=== PATIENT | male | born 1955 | race Caucasian/White ===

== ENCOUNTER 2017-03-31 13:16 | Inpatient (IN) | payer BC ==
--- NOTE | ~2017-03-31 | CO ---
Unit #: [id number] #: [id number] Patient: SHUKRI ALEJANDRE [id number] [address] [place], [place] [address] [id number] I MR#: [id number] NAME: SHUKRI ALEJANDRE ROOM: 326 Age: 62 Sex: M Admission Date: 03/31/2017 : 1955 Attending Physician: Gen Smith M.D. Primary Care Physician: Malvin Clark M.D. CONSULTATION REPORT REVISED REPORT REASON FOR CONSULTATION Depression and anxiety. HISTORY OF PRESENT ILLNESS Mr. Shukri Alejandre is a 62-year-old white male, seen in room 309, bed 1 on 04/01/2017. The patient was pleasant and cooperative during interview, lying comfortably in bed. The patient's was at the bedside. The patient reported history of depression and anxiety on medication, but admitted due to questionable stroke. The patient denied any suicidal or homicidal ideation. Denied any psychotic symptom, but still somewhat anxious and nervous. The patient has a good support system from his and children. Vital signs stable; temperature 98.1, pulse 63, respiratory rate 20, blood pressure 119/73, and oxygen saturation 99%. The patient was admitted last in 2015 at [facility] within non ST-elevation myocardial infarction. The patient has a history of cardiomyopathy. The patient was admitted with dizziness complaint. No focal weakness or paresthesia. The patient's vital signs are pulse 68, respiratory rate 14, blood pressure 118/76, height 6 feet 3 inches, weight 306 pounds. PAST PSYCHIATRIC HISTORY Remarkable for history of depression and anxiety. The patient takes Effexor and Seroquel combination. No history of any suicide attempt or any inpatient treatment. History of anxiety. MEDICAL HISTORY Remarkable for history of coronary artery disease, status post stent placement; history of hypertension; chronic pain and anxiety; chronic benzodiazepine use and narcotic use; history of hypertension; hyperlipidemia; COPD. MEDICATIONS At home, the patient is on oxycodone, hydrocodone, Ativan 2 mg t.i.d., Neurontin, aspirin, Synthroid, Effexor, Seroquel, Soma, and Dulera. ALLERGIES Advair and Levaquin. FAMILY HISTORY AND SOCIAL HISTORY The patient has a good support system from family. Lives at home with his and daughter with her kids. The patient has a job. No history of abuse. No history of any substance abuse. Unit #: [id number] #: [id number] Patient: SHUKRI ALEJANDRE REVIEW OF SYSTEMS Complete review of system is unremarkable except as mentioned above. MENTAL STATUS EXAMINATION Vital signs, please see above. General appearance; the patient is moderately obese, dressed casually, lying comfortably in bed. Attention span and concentration, fair. Speech, slow in volume and rate. Oriented in time, place, and person. Mood and affect, sad and dysphoric. Thought process, coherent. Thought content, the patient denied any thoughts of harming self or others or any psychotic symptom. Recent and remote memory, fair. Language, intact. Fund of knowledge, fair to slightly impaired. DIAGNOSES Psychiatric: 1. Major depressive disorder, recurrent, severe, F33.2. 2. Anxiety disorder, not otherwise specified, F40.01. ASSESSMENT/PLAN 1. Supportive psychotherapy and psychoeducation provided to the patient. 2. Educated about benefits and side effects of medications and course and prognosis of illness. 3. At this time, the patient and family does not want to change medication. We will continue to monitor, although the dosage seems to be high but we will closely monitor. The patient is on Seroquel 300 mg at bedtime, Neurontin 300 mg t.i.d., Ativan is p.r.n. 0.5 mg, Effexor XR 300 mg daily. We will continue to follow. Please feel free to call if any questions, telephone #[phone]. ADDITIONAL JOB #: [id number] Dictated by... Betzaida Coburn/xiao TD: 04/01/2017 23:53 JOB #: [id number] CC: Enedina/isauraision Please Delete CONSULTATION REPORT Page 1 of 1 X Yonathan De La O MD CONSULTATION REPORT
--- NOTE | ~2017-03-31 | CO ---
Unit #: [id number] #: [id number] Patient: SHUKRI ALEJANDRE [id number] [facility] [address] [facility]. [place], [place] [address] [id number] I MR#: [id number] NAME: SHUKRI ALEJANDRE. ROOM: 326 Age: 62 Sex: M Admission Date: 03/31/2017 : 1955 Attending Physician: Gen Smith M.D. Primary Care Physician: Malvin Clark M.D. Consultation Date: 04/02/2017 CONSULTATION REPORT REASON FOR CONSULTATION Followup. DISCUSSION Mr. Shukri Alejandre is a 62-year-old male, seen in room 326, bed 1 on 04/02/2017 at [facility]. The patient was lying comfortably, dressed in hospital attire, pleasant, cooperative, affect was bright, mood good. He reports that he is feeling good and reports that he is waiting for his CT scan report and neurologist. The patient denied any thoughts of harming self or others or any psychotic symptom. The patient's vital signs are stable; temperature 99.0, pulse 75, respiratory rate 20, blood pressure 131/78, and oxygen saturation 97%. REVIEW OF SYSTEMS Complete review of systems unremarkable. MENTAL STATUS EXAMINATION General appearance; the patient dressed casually, moderately obese. Attention span and concentration, fair. Speech, regular rate and coherent. Oriented in time, place, and person. Mood and affect, sad and dysphoric, but able to smile. Thought process, coherent. Thought content, the patient denied any thoughts of harming self or others. Denied any psychotic symptom. Recent and remote memory, fair. Language, intact. Fund of knowledge, fair to slightly impaired. DIAGNOSES Psychiatric: Major depressive disorder, recurrent, severe, F33.2; anxiety disorder, not otherwise specified, F40.01. ASSESSMENT/PLAN 1. Supportive psychotherapy and psychoeducation provided to the patient. 2. Educated about benefits and side effects of medication and course and prognosis of illness. 3. Advised to continue with current combination of medication, no change, and the patient to follow up upon discharge with his outpatient psychiatrist. Please feel free to call if any questions, telephone #[phone]. Dictated by... YonathanBetzaida Garcia Unit #: [id number] #: [id number] Patient: SHUKRI ALEJANDRE TD: 04/02/2017 22:52 JOB #: [id number] CONSULTATION REPORT Page 1 of 1 X Yonathan De La O MD CONSULTATION REPORT
--- NOTE | ~2017-03-31 | HP ---
Unit #: [id number] #: [id number] Patient: ALEXIA PETERSON [id number] [id number] [facility]. [place], [place] [address] [id number] I MR#: [id number] NAME: ALEXIA PETERSON ROOM: 309 Age: 62 Sex: M Admission Date: 03/31/2017 : 1955 Attending Physician: Gen Smith M.D. Primary Care Physician: Malvin Clark M.D. HISTORY AND PHYSICAL CHIEF COMPLAINT Dizziness. HISTORY OF PRESENT ILLNESS This 62-year-old gentleman, who has a variety of medical problems, said he became dizzy on and it has increased gradually. It is a room spinning sensation. He denies nausea or vomiting. It seems to be made worse by standing, but he can even be dizzy if he is lying down. No focal weakness or paresthesias. PAST MEDICAL HISTORY Past medical history is remarkable for coronary artery disease status post stent placement, history of hypertension, chronic pain and anxiety - on chronic benzodiazepines and narcotics, history of hypertension, hyperlipidemia and COPD. MEDICATIONS Medications at home include oxycodone 10 mg, hydrocodone, Ativan 2 mg t.i.d., Neurontin, Tenoretic, aspirin, Synthroid, Feldene, Effexor, potassium, Lipitor, Seroquel, Soma. He is on Dulera twice a day but no other inhaled medications. ALLERGIES Advair, although he takes Dulera at home; Levaquin. SOCIAL HISTORY Quit smoking in October of this year but smoked 2 1/2 packs of cigarettes a day. He does drink. FAMILY HISTORY No familial lung disease. REVIEW OF SYSTEMS He does snore. Has been told he has witnessed apneic events. He had some chest pain, and cardiology feels that it was reflux. No palpitations. No abdominal pain, melena, hematochezia, hematuria, dysuria, focal weakness, paresthesias. He does see a urologist. He does wheeze on occasion and does produce chronic sputum. Further review of systems negative. PHYSICAL EXAMINATION VITAL SIGNS: Examination reveals a gentleman who is afebrile. Pulse 68, respiratory rate 14, blood pressure 118/74. He is 6'3", 306 pounds. BMI is 38. HEENT: Pupils equal, round and reactive to light. Sclerae anicteric. Unit #: [id number] #: [id number] Patient: ALEXIA PETERSON Head atraumatic. Mallampati class 4 oropharynx. NECK: Supple. No supraclavicular or cervical adenopathy appreciated. CHEST: Decreased breath sounds. No ashley wheeze, stridor, consolidation. CARDIAC: Examination reveals a regular rate and rhythm. No pathologic murmur, rub or gallop. ABDOMEN: Abdomen is soft, nontender. No hepatomegaly or rebound. EXTREMITIES: Extremities reveal no clubbing, cyanosis or edema. No calf tenderness. SKIN: Warm and dry without rash or diaphoresis. NEUROLOGIC: Walks about the room without difficulty. He does hold on to objects for stability. DIAGNOSTIC STUDIES IMAGING: He had a CT scan, which was unremarkable. Chest x-ray - No acute disease on a portable chest. LABORATORY EXAMINATION: BUN 16, creatinine 1.1. INR normal. Initial cardiac enzymes negative. CBC normal. CARDIOVASCULAR: EKG - Sinus rhythm. IMPRESSION 1. Dizziness, suspect labyrinthitis. 2. Chest pain, although did not mention to me. Cardiology feels that it is reflux. 3. Coronary artery disease. 4. COPD. 5. Likely obstructive sleep apnea, etc. PLAN Admission to the hospital. Neurology and cardiology workup is ongoing. He, likely, will need ENT evaluation as an outpatient. He also will need outpatient nocturnal polysomnography and PFTs. Long-term, I would suggest avoiding benzodiazepines and narcotics if possible; if not possible for complete avoidance, I would decrease his dose, as this certainly is going to aggravate his sleep apnea. Dictated by Hi Dey M.D. GAGAN/homa TD: 04/01/2017 11:27 JOB #: [id number] HISTORY AND PHYSICAL Page 1 of 1 X Hi Dey MD HISTORY AND PHYSICAL
--- NOTE | ~2017-03-31 | EKG ---
PATIENT: ALEXIA PETERSON UNIT #: [id number] Ventricular Rate: 77 BPM Atrial Rate: 77 BPM P-R Interval: 160 ms QRS Duration: 96 ms Q-T Interval: 368 ms QTC Calculation(Bezet): 416 ms P Oblong: 59 degrees Calculated R Oblong: 62 degrees Calculated T Oblong: 70 degrees Diagnosis Line: Normal sinus rhythm Diagnosis Line: Cannot rule out Anterior infarct (cited on or Diagnosis Line: before 28-FEB-2016) Diagnosis Line: Abnormal ECG Diagnosis Line: When compared with ECG of 01-MAR-2016 06:41, Diagnosis Line: Serial changes of Anterior infarct Present Diagnosis Line: Confirmed by LLOYD RAVI MD ([id number]) on 03/31/2017 Diagnosis Line: 4:54:35 PM INTERPRETING MD: BREONNA PINK
--- NOTE | ~2017-03-31 | DS ---
Unit #: [id number] #: [id number] Patient: ALEXIA PETERSON [id number] [address] [address] [id number] I MR#: [id number] NAME: ALEXIA PETERSON. ROOM: 326 Age: 62 Sex: M Admission Date: 03/31/2017 : 1955 Discharge Date: 04/02/2017 Attending Physician: Gen Smith M.D. Primary Care Physician: Malvin Clark M.D. DISCHARGE SUMMARY DISCHARGE DIAGNOSES 1. Dizziness, likely labyrinthitis, neurology workup negative. 2. Likely obstructive sleep apnea, suspect severe. 3. Chronic obstructive pulmonary disease. 4. Hypercapnia multifactorial including obesity, sleep apnea, chronic obstructive pulmonary disease, and medication effect. 5. Coronary artery disease, status post stent placement. 6. History of acute myocardial infarction. 7. Hypertension. 8. Hyperlipidemia. 9. Chronic back pain. 10. Anxiety, depression. CONSULTANTS 1. Dr. Desouza. 2. Dr. De La O. 3. Dr. Jackson. FOLLOWUP 1. Followup with Dr. Clark, I have suggested in one week. Patient wants to get ENT evaluation from Dr. Clark. 2. Dr. Dey's nurse practitioner in one to two weeks, arrange a sleepy study and PFTs. 3. Dr. Shah, neurology, in four weeks. 4. Dr. Desouza, May 01. MEDICATIONS 1. Dulera two puffs twice a day. 2. Albuterol as needed. 3. Aspirin 81 mg a day. 4. Feldene 20 mg a day. 5. Hydrocodone p.r.n. I have suggested reducing the dose as much as possible. 6. Potassium 20 mEq daily. 7. Neurontin 300 mg t.i.d. 8. Lipitor 80 mg at bedtime. 9. Seroquel 300 mg at bedtime. 10. Ativan p.r.n. lowest dose as possible. 11. Tenoretic 50 mg a day. 12. Soma 350 mg in the morning, 700 mg at bedtime. 13. Synthroid 0.025 mg daily. DIET As tolerated. Unit #: [id number] #: [id number] Patient: ALEXIA PETERSON ACTIVITY No specific restrictions. Room air arterial blood gas: A pH 7.4, pCO2 of 51, pO2 of 73. DESCRIPTION OF HOSPITALIZATION Patient was admitted through the emergency room with dizziness. He was seen by cardiology, neurology. Cardiology asked Dr. De La O, psychiatry, to see the patient in attempts to reduce some of his medications. He underwent MRI of the brain, which the formal report is pending but according to the neurologist showed no acute stroke. Other studies again reports are pending but there was no findings that required further inpatient evaluation according to neurology. Cardiology signed off and will follow up in the office. On the day of discharge, he felt better. In fact, he says "I'm fine." Without question, he has COPD and I have encouraged continued not smoking. He will continue his inhaled bronchodilators and I have added as needed albuterol. He should get PFTs as an outpatient. He has undoubtedly sleep apnea which I suspect is severe and he needs outpatient nocturnal polysomnography. There was some vague details about possibly getting a sleep study in the future but could not tell me what doctor, where, or how. He now wants to come to my office for evaluation. He will be seen in our office by our nurse practitioner. Will investigate insurance requirements for arranging a sleep study. Again, I have suggested that he reduce his narcotics and benzodiazepines. I have discussed it with he and family members. I also have stressed the need for ENT evaluation but again he wants to wait and talk to Dr. Clark and have him arrange it. Overall, he was discharged in improved condition. Dictated by... Hi Dey M.D. GAGAN/dylan TD: 04/03/2017 09:20 JOB #: [id number] DISCHARGE SUMMARY Page 1 of 1 X Hi Dey MD X DISCHARGE SUMMARY
--- NOTE | ~2017-03-31 | CR72 ---
[facility] A Service of [facility] & [facility] RADIOLOGY TEXT RESULTS PATIENT: ALEXIA PETERSON LOCATION: [facility] 326- : [birth year] UNIT #: [id number] AGE: [address]: Gen Smith MD SEX: M ORDER DR: [id number] [facility] [address] [facility]. [place], [place] [address] [id number] I MR#: [id number] Acc #: [id number] NAME: ALEXIA PETERSON. : 1955 SEX: M STUDY DATE/TIME: 03/31/2017 14:10 UNIT: [address] ROOM: [facility] STUDY DESCRIPTION: CR Chest Single View Portable Attending Physician: Gen Smith M.D. Ordering Physician: Hany Brantley D.O. Primary Care Physician: Malvin Clark M.D. MEDICAL IMAGING REPORT This report is preliminary unless electronic signature is present EXAM Portable chest 03/26/2011 COMPARISON STUDIES 02/27/2016 HISTORY Chest pain, shortness of breath and dizziness beginning 03/26/17. FINDINGS AP portable view of the chest is obtained. The heart size is normal and the lungs are clear. CONCLUSION Negative portable chest Dictated by... Rudolph Soto M.D. THIS IS AN ELECTRONICALLY VERIFIED REPORT Rudolph Soto M.D. at 04/04/2017 7:15 AM LUPE/ene TD: 03/31/2017 21:39 JOB #: [id number] MEDICAL IMAGING REPORT Page 1 of 1 COPY
--- NOTE | ~2017-03-31 | CO ---
Unit #: [id number] #: [id number] Patient: ALEXIA PETERSON [id number] [facility] [address] [facility]. [place], [place] [address] [id number] MR#: [id number] NAME: ALEXIA PETERSON ROOM: 326 Age: 62 Sex: M Admission Date: 03/31/2017 : 1955 Attending Physician: Gen Smith M.D. Primary Care Physician: Malvin Clark M.D. Consultation Date: 04/01/2017 CONSULTATION REPORT PRIMARY CARE PHYSICIAN Dr. Malvin Clark. CONSULTING PHYSICIAN Dr. Gen Smith. REASON FOR CONSULTATION Rule out stroke. PATIENT IDENTIFICATION This is a 62-year-old right-handed male, evaluated in room 326 at [facility]. SOURCE OF INFORMATION Obtained from the patient, the patient's at the bedside as well as medical record. HISTORY OF PRESENT ILLNESS This is a 62-year-old right-handed male, with past medical history of CAD with stent placement in 2016, hypertension, chronic pain, anxiety, COPD, hypertension, hyperlipidemia, anxiety, and depression as well as bipolar disorder, who presents to [facility] with chief complaint of dizziness. The patient states that he has been having ongoing "dizziness" since , that it has gotten progressively worse. Thus, he sought treatment for further evaluation. His at the bedside states that she noted that he had slurred speech on Saturday, that she states is not fully resolved. The patient reports that he feels as though the sensation of spinning and he states that whenever he attempts to ambulate that he feels as though he is going to fall forward. He reports nausea, but denies vomiting. He reports symptoms are worse with movement and standing, but he does experience dizziness while lying or sitting, although, it has improved. He denies any double vision, blurred vision or loss of vision, headache, or neck pain, any recent illness or injury. He denies any focal weakness or paresthesia, or shortness of air, or loss of consciousness, or loss of awareness. He did complain of some sharp chest pain for which Cardiology has evaluated and does not feel as though it is cardiac in nature. He also reports that he did stop his Brilinta recently for a scheduled prostate biopsy that was restarted yesterday by Cardiology. The patient denies any other exacerbating or alleviating factors or any other associated symptoms. He had a head CT done without contrast in the ER that shows no demonstrable significant intracranial abnormality, please see full report. He had a carotid ultrasound that shows no evidence of hemodynamically significant luminal narrowing in the bilateral cervical Unit #: [id number] #: [id number] Patient: ALEXIA PETERSON internal carotid arteries by NASCET criteria. There is antegrade flow in both vertebral arteries. However, Doppler pulse wave form for right vertebral artery suggested diminished absent diastolic flow which could be a reflection of right vertebral artery stenosis. The patient has a CT angiography of the neck and head scheduled for further assessment of the left vertebral artery is unremarkable, scattered atherosclerotic plaque throughout carotid systems bilaterally noted. He also had chest x-ray done in the ER that was negative. The patient reports persistent dizziness, thus Neurology was asked to evaluate. EKG shows normal sinus rhythm with a ventricular and atrial rate of 77 beats per minute, this was done on 03/31/2017. PAST MEDICAL HISTORY 1. CAD with a history of non-STEMI in 2016, status post stent placement. 2. Hypertension. 3. Hyperlipidemia. 4. Chronic back pain. 5. Anxiety. 6. Depression. 7. Bipolar disorder. 8. Obesity. 9. COPD. 10. Chronic benzodiazepine and narcotics use. ALLERGIES 1. Advair. 2. Levaquin. HOME MEDICATIONS Include: 1. Oxycodone. 2. Hydrocodone. 3. Ativan, he actually takes 2 mg p.o. t.i.d., but he is receiving 0.5 mg t.i.d. here. 4. Neurontin. 5. Tenoretic. 6. Aspirin. 7. Synthroid. 8. Feldene. 9. Effexor. 10. Potassium. 11. Lipitor. 12. Seroquel. 13. Soma. 14. Brilinta, again his Brilinta was stopped last week, but was restarted yesterday on admission. 15. Dulera. FAMILY HISTORY Noncontributory. SOCIAL HISTORY The patient is , lives with his . He is a reformed smoker, he quit in October of this year. He smoked two and half packs per day of tobacco prior to that. He is reformed drinker, his states that he quit drinking in October as well and had about a 10-year history of drinking prior to that and for couple of years, she reports he was a very heavy drinker. Unit #: [id number] #: [id number] Patient: ALEXIA PETERSON REVIEW OF SYSTEMS A 12-point review of systems was done. Pertinent positives are as discussed above. Of note, his states that he has had some episodes of confusion at home going on for quite a long time efforts of the year, where he will have some days, where he is confused, that she reports he has never had any focal neurologic deficits. Otherwise, 14-point review of systems is negative unless as discussed above. PHYSICAL EXAMINATION VITAL SIGNS: Temperature 98.1. He has been afebrile. Pulse 63, respirations 20, blood pressure 119/73, blood pressure on arrival is 127/83, oxygen saturation 99%. Height 63 inches and weight 306 pounds. BMI 38. NEUROLOGIC: The patient is awake, alert, and oriented to person, place, and time as well as events. No right or left confusion. No finger agnosia. No aphasia or apraxia. He does not appear to have any obvious dysarthria. His , however, states that his speech is not at his baseline. Cranial nerve exam, he demonstrates full dooley of vision. Eyes are conjugate without ptosis. Questionable nystagmus. Extraocular movements are intact. Sensation of face and scalp is intact. Strength of the muscles of facial expression is intact. Hearing is intact to finger rub and conversation. Tongue is midline. Uvula is midline. Palate elevation is normal. Head turning and shoulder shrug are unremarkable. Neck is supple. Motor exam, he demonstrates normal bulk and tone. Strength is equal 5/5 in all extremities though he has difficulty with the right lower extremity, but he reports that this is due to pain in his right leg that he has chronic right leg pain and chronic back pain. Sensory exam, diminished sensation in the lower extremities bilaterally. Gait deferred. Romberg deferred. Reflexes, unable to elicit. Toes are equivocal. Coordination, he has some difficulty with the left upper extremity consistently compared to the right. There are no difficulty with the lower extremities. He does not appear to have any truncal ataxia. He is able to sit up on the side of the bed without significant difficulty. DIAGNOSTIC STUDIES Please see above. LABORATORY DATA Ammonia 32. Lactic acid 1.3. Troponin less than 0.05, repeat troponin less than 0.05. BNP 44. PT 9.8, INR 0.9, PTT 24.7. Sodium 138, potassium 3.5, chloride 99, CO2 of 32, glucose 170, BUN 16, creatinine 1.1. Estimated GFR 32.6, calcium 8.8, AST is 21, ALT 27, alkaline phosphatase 59. Total protein 7.5, albumin 3.9. Alcohol level less than five. CBC unremarkable. IMPRESSION 1. Acute to subacute vertigo and nausea, rule out central etiology. 2. Coronary artery disease. 3. Left ventricular ejection fraction 50%. 4. Chronic pain. 5. Reformed smoker. 6. Reformed drinker. 7. Hypertension. 8. Hyperlipidemia. 9. Chronic obstructive pulmonary disease. 10. Anxiety. Unit #: [id number] #: [id number] Patient: ALEXIA PETERSON 11. Depression. 12. Obesity with BMI of 38. 13. Bipolar disorder. PLAN We will request MRI of the brain, CT angiogram of the head and neck. The patient is already on aspirin and Brilinta has been restarted. I am unable to perform Efren-Hallpike on the patient at this time. I discussed the case with Dr. Jackson and he agrees the MRI of the brain and blood vessel imaging as well with placed bilateral lower extremity SCDs. Continue antiplatelet medication. The patient is requesting Ativan for MRI and states he is claustrophobic. I did discuss with Dr. Jackson as he takes p.o. Ativan at a pretty significant dose at home. We did try the patient with a small dose of IV Ativan for MRI; however, he was unable to tolerate MR imaging here as it is a closed small bore MRI and it was quite a tight fit. The patient was not able to sit comfortably and unable to tolerate; therefore, we will send the patient to [facility] [place] [facility] for large bore MRI in an attempt to getting brain imaging. We will request CT angiogram of the head and neck. Further recommendations made pending workup and further clinical course. Please call for any questions or issues. We thank you very much for allowing us to assist in the care of this patient. Dictated by... Barbara Nevarez A.P.R.N. for Betzaida Barnes/xiao TD: 04/02/2017 14:27 JOB #: [id number] CONSULTATION REPORT Page 1 of 1 X Barbara Nevarez APRN X CONSULTATION REPORT
--- NOTE | ~2017-03-31 | CT17 ---
[facility] A Service of [facility] & [facility] RADIOLOGY TEXT RESULTS PATIENT: ALEXIA PETERSON LOCATION: [facility] 326- : 57 UNIT #: [id number] AGE: [address]: Gen Smith MD SEX: M ORDER DR: [id number] [place], [place] [address] [id number] I MR#: [id number] Acc #: [id number] NAME: ALEXIA PETERSON : 1955 SEX: M STUDY DATE/TIME: 04/02/2017 8:33 UNIT: [address] ROOM: [address] [place] [address] DESCRIPTION: CT Angio Head Attending Physician: Gen Smith M.D. Ordering Physician: Barbara Nevarez A.P.R.N. Primary Care Physician: Malvin Clark M.D. MEDICAL IMAGING REPORT This report is preliminary unless electronic signature is present EXAM CT scan of the head and neck with contrast with carotid CT angiography FINDINGS Result text under order number [id number]. Please see this order for result text. Dictated by... Kj Oliva M.D. THIS IS AN ELECTRONICALLY VERIFIED REPORT Kj Oliva M.D. at 04/02/2017 4:10 PM RLF/juan TD: 04/02/2017 15:18 JOB #: [id number] MEDICAL IMAGING REPORT Page 1 of 1 COPY
--- NOTE | ~2017-03-31 | US37 ---
[facility] A Service of [facility] & [facility] RADIOLOGY TEXT RESULTS PATIENT: ALEXIA PETERSON LOCATION: [facility] 326- : 57 UNIT #: [id number] AGE: [address]: Gen Smith MD SEX: M ORDER DR: [id number] [facility] [address] [facility]. [place], [place] [address] [id number] I MR#: [id number] Acc #: [id number] NAME: ALEXIA PETERSON. : 1955 SEX: M STUDY DATE/TIME: 04/01/2017 7:46 UNIT: [facility] PCU ROOM: 309 STUDY DESCRIPTION: US Carotid W/Doppler Bilateral Attending Physician: Gen Smith M.D. Ordering Physician: Gen Smith M.D. Primary Care Physician: Malvin Clark M.D. MEDICAL IMAGING REPORT This report is preliminary unless electronic signature is present EXAM Carotid ultrasound, 04/01/2017 HISTORY Evaluate for stroke. Dizziness for 1 week. Myocardial infarction, cardiac stents, hypertension. Heart disease, high blood pressure. FINDINGS Real-time ultrasonography of the cervical carotid and vertebral arteries performed. Monroe-scale, color Doppler and Doppler pulse-wave interrogation utilized. Carotid flow evaluated using methodology based upon NASCET criteria. Atherosclerotic plaque seen throughout the carotid systems bilaterally. On the right peak systolic velocities as follows: Common carotid artery 0.41 m/sec, internal carotid artery 0.64 m/sec, in mid segment of artery, external carotid artery 0.57 m/sec second. There is antegrade flow in the right vertebral artery. The right IC/CC ratio is 1.5. Right-sided Doppler pulse waveforms notable for diminished to absent diastolic flow in the right vertebral artery. This could be a reflection of right vertebral artery stenosis. On the left peak systolic velocities as follows: Common carotid artery 0.61 m/sec, internal carotid artery 0.48 m/sec at distal segment of the artery, external carotid artery 0.47 m/sec. There is antegrade flow in the left vertebral artery. The left IC/CC ratio is 0.78. Left-sided Doppler pulse waveforms normal. IMPRESSION 1. There is no evidence of hemodynamically significant luminal narrowing in the bilateral cervical internal carotid arteries using NASCET criteria. 2. There is antegrade flow in both vertebral arteries. Doppler pulse [facility] A Service of [facility] RADIOLOGY TEXT RESULTS PATIENT: ALEXIA PETERSON LOCATION: [facility] [address] : 57 UNIT #: [id number] AGE: [address]: Gen Smith MD SEX: M ORDER DR: waveform for right vertebral artery suggests diminished to absent diastolic flow which could be a reflection of right vertebral artery stenosis. Records in DR PACS System indicate patient is scheduled for a CT angiography of the neck and head. Please see that study for additional assessment. The left vertebral artery unremarkable. 3. Scattered atherosclerotic plaque throughout carotid systems bilaterally. Dictated by... Rudolph Herr M.D. THIS IS AN ELECTRONICALLY VERIFIED REPORT Rudolph Herr M.D. at 04/02/2017 5:16 PM FLAKO/nicholas TD: 04/01/2017 16:12 JOB #: [id number] MEDICAL IMAGING REPORT Page 1 of 1 COPY
--- NOTE | ~2017-03-31 | EKG ---
PATIENT: ALEXIA PETERSON UNIT #: [id number] Ventricular Rate: 62 BPM Atrial Rate: 62 BPM P-R Interval: 164 ms QRS Duration: 100 ms Q-T Interval: 422 ms QTC Calculation(Bezet): 428 ms P Clinton: 54 degrees Calculated R Clinton: 59 degrees Calculated T Clinton: 72 degrees Diagnosis Line: Normal sinus rhythm Diagnosis Line: Low voltage QRS Diagnosis Line: Poor R wave progression questionable lead position Diagnosis Line: or body habitus Diagnosis Line: Borderline ECG Diagnosis Line: When compared with ECG of 31-MAR-2017 13:23, Diagnosis Line: No significant change was found Diagnosis Line: Confirmed by LARY LEE MD ([id number]) on Diagnosis Line: 04/02/2017 9:07:50 PM INTERPRETING MD: LEONA
--- NOTE | ~2017-03-31 | CT71 ---
[facility] A Service of [facility] RADIOLOGY TEXT RESULTS PATIENT: ALEXIA PETERSON LOCATION: [facility] 326-01 : 57 UNIT #: [id number] AGE: [address]: Gen Smith MD SEX: M ORDER DR: [id number] [facility] [address] [facility]. [place], [place] [address] [id number] I MR#: [id number] Acc #: [id number] NAME: ALEXIA PETERSON. : 1955 SEX: M STUDY DATE/TIME: 03/31/2017 15:16 UNIT: [address] ROOM: [facility] STUDY DESCRIPTION: CT Head Wo Contrast Attending Physician: Gen Smith M.D. Ordering Physician: Hany Brantley D.O. Primary Care Physician: Malvin Clark M.D. MEDICAL IMAGING REPORT This report is preliminary unless electronic signature is present EXAM CT head without contrast, 03/31/[address] head with and without contrast dated 07/22/2006. HISTORY Slurred speech, dizziness for 4 days. Patient states that he came off medication on and that is when his symptoms started. This CT exam was performed with one or more of the following radiation dose reduction techniques: automatic exposure control, adjustment of mA and/or kV according to patient size, and iterative reconstruction. FINDINGS CT of the head was obtained without contrast in the axial plane as per the protocol. No acute intracranial hemorrhage, space-occupying mass, mass effect, midline shift or hydrocephalus. As there were motion artifact in the base of the brain, those slices were repeated. No significant intracranial abnormality is seen. Mild atherosclerotic vascular calcifications are noted in bilateral internal carotid arteries and left vertebral artery. Paranasal sinuses, mastoid air cells are well-aerated. Nasal septum is deviated to the left. Imaged orbits and the ocular structures do not demonstrate any significant abnormality. IMPRESSION No demonstrable significant intracranial abnormality. Dictated by... Pio Marlow M.D. [facility] A Service of [facility] RADIOLOGY TEXT RESULTS PATIENT: ALEXIA PETERSON LOCATION: [facility] 326-01 : 57 UNIT #: [id number] AGE: [address]: Gen Smith MD SEX: M ORDER DR: THIS IS AN ELECTRONICALLY VERIFIED REPORT Pio Marlow M.D. at 04/01/2017 5:12 PM CPR/chai TD: 03/31/2017 22:35 JOB #: [id number] MEDICAL IMAGING REPORT Page 1 of 1 COPY
--- NOTE | ~2017-03-31 | CO ---
Unit #: [id number] #: [id number] Patient: ALEXIA PETERSON [id number] [address] [place], [place] [address] [id number] I MR#: [id number] NAME: ALEXIA PETERSON ROOM: 326 Age: 62 Sex: M Admission Date: 03/31/2017 : 1955 Attending Physician: Gen Smith M.D. Primary Care Physician: Malvin Clark M.D. Consultation Date: 03/31/2017 CONSULTATION REPORT REASON FOR CONSULTATION Chest pain. HISTORY OF PRESENT ILLNESS This is a 62-year-old white male, who is known to Dr. Desouza, who has a history of coronary artery disease. He has had previous stent to the LAD in 2004, but had a non-ST elevation myocardial infarction in 02/2016 and underwent redo PCI with drug-eluting stent to the proximal LAD. He had nonobstructive disease in his remaining arteries. He has risk factors for ischemic heart disease includes hypertension, hyperlipidemia, and a remote history of nicotine abuse. The patient is admitted with complaint of dizziness and chest pain. On , he began to have a dizziness with ataxia and slurred speech. He reported sharp intermittent substernal chest pain that lasts for a few seconds responded spontaneously without radiation to his neck, arm, or jaw. He had no associated dyspnea, diaphoresis, or nausea. He was to have a prostate biopsy done this week and his Brilinta was discontinued on 03/26/2017. He came to the emergency room for evaluation, where he has been normotensive. His electrolytes are within normal limits. Troponin negative with no acute changes on EKG. He says his activity level has been diminished, because of what he relates to COPD. He reports dyspnea at rest and on exertion with occasional productive cough with green sputum. He had a subjective fever, but no chills. Denied lower extremity edema, paroxysmal nocturnal dyspnea, or orthopnea. PAST MEDICAL HISTORY 1. 2D echocardiogram on 04/26/2016 shows an ejection fraction equal to 50%. There was moderate hypokinesis of the left ventricle apex. Images suboptimal. 2. PCI with Cypher drug-eluting stent to the LAD in 2004. 3. Ffo-PF-egwblmolg myocardial infarction on 02/28/2016, status post cardiac catheterization per Dr. Desouza at [facility] that revealed left main normal. LAD with 99% stenosis proximal to the previously placed stent. Two diagonal branches arising within the stent struts normal. Ramus intermedius branch with 20% midvessel stenosis. The circumflex artery codominant vessel with posterior marginal branch with 30% stenosis at its origin. Left PDA normal. Right coronary artery codominant vessel with no more than 20% to 30% stenosis to the right coronary trunk. Posterior left ventricular branch normal. Ejection fraction of 45%. 4. Status post PCI with drug-eluting stent to the proximal left anterior descending artery on 02/28/2016. 5. Hypertension. Unit #: [id number] #: [id number] Patient: ALEXIA PETERSON 6. Hyperlipidemia. 7. COPD. 8. Chronic back pain. 9. Former smoker. PAST SURGICAL HISTORY 1. Back surgery. 2. Rotator cuff repair. 3. Left foot surgery for bone spurs. SOCIAL HISTORY The patient is . He quit smoking in 10/2016, but previously smoked 2-1/2 packs of cigarettes a day. Drinks alcohol on occasion. He denies illicit drug use. FAMILY HISTORY Positive for coronary artery disease with father having a myocardial infarction in the past. His brother has heart disease. ALLERGIES Advair and Levaquin. HOME MEDICATIONS Oxycodone 10 mg daily, Ativan 2 mg t.i.d., Neurontin 300 mg t.i.d., atenolol/chlorthalidone 50 mg daily, aspirin 81 mg daily, levothyroxine 25 mcg daily, Feldene 20 mg daily, Effexor 300 mg daily, potassium chloride 20 mEq daily, Lipitor 80 mg q.h.s., Seroquel 300 mg q.h.s., carisoprodol 350 mg q.a.m. and 700 mg q.p.m. REVIEW OF SYSTEMS CONSTITUTIONAL: Reports subjective fever, but no chills. Has weakness and fatigue. HEENT: Positive for dizziness. Denies headache or hearing or visual changes. CARDIOVASCULAR: Has chest pain as described in HPI. Denies palpitations. No paroxysmal nocturnal dyspnea or orthopnea. Denies syncope or near syncope. RESPIRATORY: Positive for dyspnea at rest and on exertion. Has a productive cough with green sputum. No hemoptysis. GASTROINTESTINAL: Soft. No abdominal pain, nausea, or vomiting. No constipation or melena. EXTREMITIES: Negative for lower extremity edema. PHYSICAL EXAMINATION VITAL SIGNS: Blood pressure 128/82, heart rate 76, temperature 97.8. BMI 38. GENERAL: This is a 62-year-old well-developed, tall, white male, who is in no acute respiratory distress. NEUROLOGIC: He is awake, alert, and oriented. There are no focal weaknesses. NECK: Trachea is midline. No thyromegaly or lymphadenopathy. No jugular venous distention. HEART: S1 and S2. Heart sounds are normal. No murmurs. No rubs or clicks. Regular rate and rhythm. LUNGS: Diminished without rales, rhonchi, or wheezes. ABDOMEN: Soft, obese with bowel sounds are present. No hepatomegaly. EXTREMITIES: Without leg edema. SKIN: Warm and dry. Unit #: [id number] #: [id number] Patient: ALEXIA PETERSON DIAGNOSTIC STUDIES LABORATORY RESULTS: Glucose 170, BUN 16, creatinine 1.1, sodium 138, potassium 3.5. BNP 44. Troponin less than 0.05 x2. White count 8.1, hemoglobin 14.0, hematocrit 43.1, and platelet count 222. IMAGING STUDIES: CT of the head shows no intracranial abnormalities. Chest x-ray shows no active disease. CARDIOVASCULAR STUDIES: EKG; normal sinus rhythm with a rate of 77 beats per minute with an old anterior infarct with Q waves noted in V1 to V3. IMPRESSION 1. Chest pain secondary to gastroesophageal reflux disease. 2. Dizziness, questionable Meniere disease with vertigo. 3. Overmedicated with psychotropic drugs and opioids. 4. Status post percutaneous coronary interventions with redo to the proximal left anterior descending in 2016 post non-ST elevation myocardial infarction. 5. Elevated PSA. 6. Hypertension. 7. Hyperlipidemia. 8. Chronic obstructive pulmonary disease. PLAN 1. Cardiology was consulted for evaluation of chest pain. The patient's chest pain is atypical for ischemic heart disease. It is most likely secondary to GERD. Troponin is negative with no acute changes on EKG. 2. Prostate biopsy. 3. Restart on Brilinta. 4. Need to decrease opioids and antidepressants and other psychotropic drugs. 5. Ask Psychiatry to see the patient for detoxification from opioids. 6. Start on Protonix. 7. We will obtain carotid Doppler study as a cause of dizziness. 8. We will follow the patient with you. Thank you for allowing us to assist with this patient's care. Dictated by... Eh Chatman A.P.R.N. for Betzaida Bell/xiao TD: 04/02/2017 09:28 JOB #: [id number] CONSULTATION REPORT Page 1 of 1 X Eh Chatman APRN X CONSULTATION REPORT
--- NOTE | ~2017-03-31 | CT23 ---
[facility] A Service of [facility] RADIOLOGY TEXT RESULTS PATIENT: ALEXIA PETERSON LOCATION: [facility] 326- : 57 UNIT #: [id number] AGE: [address]: Gen Smith MD SEX: M ORDER DR: [id number] [facility] [address] [place], [place] [address] [id number] MR#: [id number] Acc #: [id number] NAME: ALEXIA PETERSON : 1955 SEX: M STUDY DATE/TIME: 04/02/2017 8:33 UNIT: [address] ROOM: [facility] STUDY DESCRIPTION: CT Angio Neck Attending Physician: Gen Smith M.D. Ordering Physician: Barbara Nevarez A.P.R.N. Primary Care Physician: Malvin Clark M.D. MEDICAL IMAGING REPORT This report is preliminary unless electronic signature is present EXAM CT scan of the head and neck with contrast with carotid CT angiography HISTORY Dizziness with vertigo and diplopia, onset 04/02/2017 TECHNIQUE Thin section imaging was obtained from the mid mediastinum to the top of head with contrast. 100 mL of Isovue was used. CT angiography was performed with thick sliding MIPs curved planar reformats and 3-D volumetric imaging with surface shaded volume shaded display. This CT exam was performed with one or more of the following radiation dose reduction techniques: automatic exposure control, adjustment of mA and/or kV according to patient size, and iterative reconstruction. FINDINGS Extravascular structures are remarkable for emphysema. There is a 3 x 5 mm noncalcified left apical nodule. It is new since a previous chest CT in 2009. Per Fleischner Society guidelines, I would recommend a followup chest CT in 3-4 months. Intravenous contrast would not be necessary. Extravascular structures otherwise unremarkable. The CT angiographic study shows wide patency of the great vessels off the arch. In the posterior circulation both vertebral arteries are patent at approximately the same size. The basilar artery is widely patent. In the carotid circulation there is intimal thickening in both common carotid arteries. There is no significant plaque across the bifurcations and there is no stenosis by NASCET criteria. The distal internal carotids show mild nonocclusive calcified plaque in the siphons. In the intracranial circulation, there is no evidence of aneurysm, vascular malformation or major branch vessel occlusion. [facility] A Service of [facility] RADIOLOGY TEXT RESULTS PATIENT: ALEXIA PETERSON LOCATION: A 326-01 : 59 UNIT #: [id number] AGE: [address]: Gen Smith MD SEX: M ORDER DR: IMPRESSION 1. Mild atherosclerotic disease with no significant stenosis by NASCET criteria. No intracranial occlusive disease is seen. 2. There is a new 3.5 x 5 mm left upper lobe noncalcified nodule since the previous chest CT in 2009. Per Fleischner Society guidelines, recommend repeat scanning of the chest without contrast in 3 months to make sure this nodule is stable over time. Dictated by... Kj Oliva M.D. THIS IS AN ELECTRONICALLY VERIFIED REPORT Kj Oliva M.D. at 04/02/2017 4:10 PM RLF/juan TD: 04/02/2017 15:16 JOB #: [id number] MEDICAL IMAGING REPORT Page 1 of 1 COPY
[~2017-03-31 13:16] MED LIST: ASPIRIN81 M1 PO; ATENOLOL-CHLORT1 TA2 PO; ATENOLOL-CHLORT1 TA3 PO; ATENOLOL50 MG PO; ATIVAN2 M1 PO; BRILINTA90 MG PO; DEPO-TESTOTERO100 MG IM; DEXILANT60 MG PO; DULERA 100 MCG/13 GM INH; EFFEXOR XR PO; EFFEXOR XR150 MG PO; EFFEXOR-XR150 MG PO; FELDENE20 MG PO; K-DUR20 ME1 PO; LACTULOSE10 G/15 M1 PO; LIPITOR20 MG DOB; LIPITOR20 MG PO; LORAZEPAM1 MG PO; NITROSTAT0.4 MG SL; NORCO 10/325 TA1 TAB PO; NORVASC10 MG PO; PERCOCET 10/3251 TAB PO; PHENERGAN25 M1 PO; PLAVIX PO; SEROQUEL PO; SEROQUEL XR200 MG PO; SOMA PO; ST. JOSEPH ASP325 MG PO; ST. JOSEPH ASPI81 M2 PO; SYMBICORT 160/4.6 GM IH; TENORMIN50 MG PO; TRAMADOL HCL E300 M1 PO; VALTREX PO; VIAGRA PO; VICODIN PO
[2017-03-31 14:06] LABS: POC - CKMB 2.2 ng/mL (0.0-7.9); POC - TROPONIN <0.05 ng/mL (<=0.05)
[2017-03-31 14:08] LABS: BASOPHIL# 0.1 X10e3 (0-0.3); BASOPHIL% 1.2 % (0-2.5); EOSINOPHIL# 0.2 X10e3 (0-0.7); EOSINOPHIL% 2.8 % (0.0-7.0); HEMATOCRIT 43.1 % (38.0-50.0); LYMPHOCYTE# 1.9 X10e3 (1.0-3.5); LYMPHOCYTE% 24.1 % (17.0-45.0); MEAN CELL VOLUME 90.3 FL (83-96); MEAN CORPUSCULAR HEMOGLOBIN 29.4 PG (28-34); MEAN CORPUSCULAR HGB CONC 32.6 g/dL (30-36); MEAN PLATELET VOLUME 7.3 FL (6.5-11.5); MONOCYTE# 0.8 X10e3 (0-1.0); MONOCYTE% 9.3 % (3.0-12.0); NEUTROPHIL# 5.1 X10e3 (1.5-7.1); NEUTROPHIL% 62.6 % (40-75); PLATELET COUNT 222 X10e3 (140-420); RED BLOOD COUNT 4.77 X10e (3.90-5.60); RED CELL DISTRIBUTION WIDTH 13.9 % (11.0-15.5); WHITE BLOOD COUNT 8.1 X10e3 (4.0-10.5)
[2017-03-31 14:19] LABS: DIFF IND NO
[2017-03-31 14:27] LABS: ALBUMIN SERUM 3.9 g/dL (3.5-5.0); ALKALINE PHOSPHATASE 59 U/L (32-92); ALT (SGPT) 27 U/L (10-40); AST (SGOT) 21 U/L (10-42); BILIRUBIN, DIRECT 0.1 mg/dL (0.0-0.2); BILIRUBIN,INDIRECT 0.3 mg/dL (0.0-0.9); BILIRUBIN,TOTAL 0.4 mg/dL (0.2-2.0); BLOOD UREA NITROGEN 16 mg/dL (9-23); BUN/CREATININE RATIO 14.54; CALCIUM SERUM 8.8 mg/dL (8.4-10.2); CARBON DIOXIDE 32 mmol/L (22-31); CHLORIDE 99 mmol/L (100-111); CREATININE SERUM 1.1 mg/dL (0.6-1.4); GLOM FILT RATE Estimated 72.6 mL/min (>60); GLUCOSE FASTING 170 mg/dL (70-110); POTASSIUM 3.5 mmol/L (3.5-5.1); PROTEIN TOTAL SERUM 7.5 g/dL (6.0-8.3); SODIUM 138 mmol/L (135-145)
[2017-03-31 14:38] LABS: ALCOHOL BLOOD <5 mg/dL (0)
[2017-03-31] MEDS ORDERED: OXYCODONE HCL10 MG PO (14:52)
[2017-03-31] MEDS ORDERED: HYSINGLA ER40 MG PO (14:53)
[2017-03-31] MEDS ORDERED: NEURONTIN300 MG PO (14:53)
[2017-03-31] MEDS ORDERED: ATIVAN2 M1 PO (14:53)
[2017-03-31] MEDS ORDERED: TENORETIC PO (14:54)
[2017-03-31] MEDS ORDERED: FELDENE20 MG PO (14:55)
[2017-03-31] MEDS ORDERED: BAYER CHEWABLE81 MG PO (14:55)
[2017-03-31] MEDS ORDERED: SYNTHROID25 MCG PO (14:55)
[2017-03-31] MEDS ORDERED: KCL PO (14:58)
[2017-03-31] MEDS ORDERED: EFFEXOR XR PO (14:58)
[2017-03-31] MEDS ORDERED: LIPITOR80 MG PO (14:58)
[2017-03-31] MEDS ORDERED: SEROQUEL300 MG PO (14:59)
[2017-03-31] MEDS ORDERED: SOMA PO ×2 (15:00)
[2017-03-31 15:04] LABS: INR 0.9; PARTIAL THROMBOPLASTIN TIME 24.7 SECONDS (23.5-31.3); PROTHROMBIN TIME (PATIENT) 9.8 SECONDS (9.6-11.5)
[2017-03-31 15:50] LABS: POC - TROPONIN <0.05 ng/mL (<=0.05)
[2017-04-02 04:05] LABS: ARTERIAL BLOOD GAS PCO2 51.1 mmHg (35.0-45.0); ARTERIAL BLOOD GAS pH 7.403 (7.350-7.450)
[2017-04-02 04:06] LABS: ARTERIAL BLD GAS O2 SATURATION 95.1 % (90.0-100.0); ARTERIAL BLOOD GAS ALLEN TEST NORMAL; ARTERIAL BLOOD GAS ART SITE RIGHT RADIAL; ARTERIAL BLOOD GAS CARBOXY HB 0.9 %sat (0.0-9.0); ARTERIAL BLOOD GAS DELIVERY ROOM AIR; ARTERIAL BLOOD GAS HCO3 31.8 mmol/L; ARTERIAL BLOOD GAS MET HB 0.7 %sat (0.0-2.0); ARTERIAL DRAW? YES
[2017-04-02] MEDS ORDERED: PROAIR HFA8.5 GM INH (18:31)
[2017-04-02] MEDS ORDERED: DULERA 100 MCG/13 GM INH (18:31)
[2017-04-02 20:20] LABS: FOLATE (FOLIC ACID) 5.5 ng/mL (>5.8)
== END 2017-04-02 20:57 | disposition home or self-care (01) | DRG 149 ==
LOC: CED 13:16 → C3A PCU 16:25 → CEDOF 16:25 → CED 16:53 → C3A PCU 18:26 → CEDOF 18:26 → C3A PCU 04-01 16:19
PROVIDERS: Emergency Medicine; Family Medicine Sleep Medicine; Psychiatry & Neurology Neurology
DX: H83.09 Labyrinthitis, unspecified ear (principal); F33.2 Major depressive disorder, recurrent severe without psychotic features; H81.09 Meniere's disease, unspecified ear; R06.89 Other abnormalities of breathing; G47.33 Obstructive sleep apnea (adult) (pediatric); J44.9 Chronic obstructive pulmonary disease, unspecified; E66.9 Obesity, unspecified; Z68.38 Body mass index [BMI] 38.0-38.9, adult; I25.10 Atherosclerotic heart disease of native coronary artery without angina pectoris; Z95.5 Presence of coronary angioplasty implant and graft; I10 Essential (primary) hypertension; E78.5 Hyperlipidemia, unspecified; G89.29 Other chronic pain; M54.9 Dorsalgia, unspecified; F41.9 Anxiety disorder, unspecified; Z87.891 Personal history of nicotine dependence; Z88.8 Allergy status to other drugs, medicaments and biological substances; R07.89 Other chest pain; K21.9 Gastro-esophageal reflux disease without esophagitis; I25.2 Old myocardial infarction; Z79.82 Long term (current) use of aspirin; Z82.49 Family history of ischemic heart disease and other diseases of the circulatory system; E03.9 Hypothyroidism, unspecified; R91.1 Solitary pulmonary nodule
CPT/HCPCS: 36415; 36600; 70450; 70496; 70498; 71010; 80048; 80076; 82140; 82553; 82607; 82746; 82803; 82947; 83605; 83880; 84484; 85025; 85610; 85730; 93005; 93880; 99285; G0480; J2060; Q9967